=== PATIENT | male | born 2000 | race Caucasian/White ===

== ENCOUNTER 2024-10-21 14:09 | Emergency (ER) | payer SELFPAY ==
--- OUTSIDE RECORDS SUMMARY | 2024-10-21 14:17 | XMS_ITS | Clinical Summary ---
Author Organization [facility] Address [address] [place] [address] Care Team Providers Care Excel Specialist Name Role Phone Mark Ledbetter MD Primary Care Provider [phone] Allergies No known active allergies Medications No known medications Active Problems Problem Noted Date Diagnosed Date Syncope 09/08/2016 Family History Medical History Relation Name Comments Other Sister Family history of bicuspid aortic valve - (Added by TW Conv) Relation Name Status Comments Sister Social History Tobacco Use Types Packs/Day Years Used Date Smoking Tobacco: Never Smokeless Tobacco: Never Tobacco Cessation:Counseling Given: Not Answered Sex and Gender Information Value Date Recorded Sex Assigned at Not on file 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 Gender Identity Not on file Sexual Orientation Not on file Obstetrics History Last Filed Vital Signs Vital Sign Reading Time Taken Comments Blood Pressure 128/90 08/11/2022 1:29 PM CDT Pulse 95 08/11/2022 1:29 PM CDT Temperature 36.6 C (97.8 F) 08/11/2022 1:29 PM CDT Respiratory Rate 23 08/11/2022 1:29 PM CDT Oxygen Saturation 96% 08/11/2022 1:29 PM CDT Inhaled Oxygen Concentration - - Weight 120.7 kg (266 lb) 08/11/2022 1:29 PM CDT Height 175.3 cm (5' 9 ) 08/11/2022 1:29 PM CDT Body Mass Index 39.28 08/11/2022 1:29 PM CDT Plan of Treatment Health Maintenance Due Date Last Done Comments Depression Screening 2000 Hepatitis C Screening 2000 Varicella Vaccines (2 of 2 - 2-dose childhood series) 05/31/2014 03/25/2001 Regular Well Visit/Exam 18-64 02/23/2018 DTaP/Tdap/Td Vaccine (7 - Td or Tdap) 02/16/2022 02/17/2012, 06/28/2004, 07/07/2001, Additional history exists Influenza Vaccine (Season Ended) 2025 05/03/2014, 02/18/2013, 02/17/2012, Additional history exists Pneumococcal vaccine <65 Aged Out 001, 2000, 2000 No longer eligible based on patient's age to complete this topic Hepatitis B Screening Completed 2000 , 2000, 2000 HPV Vaccines Completed 05/15/2017, 01/30, 02/18/2013 Insurance [facility] Care Teams Excel Specialist Relationship Specialty Start Date End Date Mark Ledbetter MD PCP - General 08/09/16
--- OUTSIDE RECORDS SUMMARY | 2024-10-21 14:17 | XMS_ITS | Referral Summary ---
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
[2024-10-21 14:18] VITALS: BP 146/83; PULSE 81; RESP 16; TEMP 36.6; O2SAT 98
--- NOTE | 2024-10-21 14:20 | ED.URI ---
HPI - URI/Sore Throat General Chief Complaint: Upper Respiratory Infection Stated Complaint: Sore Throat,Cough ,Vomiting Time Seen by Provider: 10/21/24 14:22 History of Present Illness HPI Narrative: 24 y/o male presented for c/o cough and sore throat and nasal congestion x2.5 weeks. Reports symptoms are worse in the morning. Denies sob, wheezing, n/v/d/f/c. Not taking anything for symptoms. Kids with similar symptoms. Related Data Allergies Allergy/AdvReac Type Severity Reaction Status Date / Time No Known Allergies Allergy Verified 10/21/24 14:24 Review of Systems Review of Systems: CONSTITUTIONAL: Denies body aches, fever, chills, or sweats. EYES: Denies visual changes, redness, or discharge. ENT: reports sore throat, rhinorrhea, congestion, denies otalgia. CARDIOVASCULAR: Denies chest pain, palpitations, or edema. RESPIRATORY: Denies dyspnea. GASTROINTESTINAL: Denies abdominal pain, nausea, vomiting, or diarrhea. SKIN: Denies rash NEUROLOGIC: Denies headache Exam Narrative: GENERAL: well-appearing, no acute distress. EYES: conjunctivae clear ENT: Mucous membranes moist. right TM pearly blue with normal light reflex; Left TM erythematous, bulging and intact; canal not erythematous, no drainage no tragal tenderness. Oropharynx erythematous without lesions. Tonsils enlarged 2+ and without exudate. No drooling, no hoarseness, no trismus, uvula midline. No tripod positioning, hot potato voice, or soft palate swelling. NECK: Supple. No lymphadenopathy CHEST: Clear to auscultation, breath sounds equal. HEART: Regular rate and rhythm. No murmur heard. SKIN: Warm, dry, no rash. NEURO: Alert and oriented x3. Course Course Emergency Course: Patient is aware of diagnosis, understands and agrees to treatment plan. Anticipatory guidance given. Patient agrees to follow-up as directed and is aware of reasons to seek care at the emergency department. Portions of this record may have been created with voice recognition software Level of Care: Express Care Visit MDM - URI/Sore Throat MDM Narrative Medical decision making narrative: Discussed physical exam findings consistent with left otitis media and sinusitis. Advise supportive treatments. Patient is appropriate for outpatient treatment and follow-up. Differential Diagnosis Differential diagnosis: Likely upper respiratory infection, viral infection and pharyngitis Discharge Plan Discharge Clinical Impression: Otitis media, Sinusitis Patient Disposition: Home Condition: Stable Instructions: Antibiotic Form, Ear Infection (ED) Additional Instructions: Take antibiotic as directed Recommendations: antihistamine such as Benadryl, Zyrtec or Miroslava for sinus congestion Flonase nasal spray, 1 spray in each nostril once daily until symptoms improve Symptomatic treatment includes: rest, fluids, and increase humidity of the air at home. Please schedule a follow-up visit with your personal physician for further evaluation and treatment within 3-5days. If your symptoms persist, change or worsen significantly, go to the emergency department for further evaluation. Patient Language: Portuguese Prescriptions: New amoxicillin-pot clavulanate 875-125 mg tablet 1 tablet PO Q12H 7 Days Qty: 14 0RF Follow-up/Referrals: UNKNOWN,DOCTOR [Primary Care Provider] - Stand Alone Forms: Work/School Release IP
[2024-10-21 14:33] LABS: EDSTREPNEGPOS1 Negative (Negative)
== END 2024-10-21 14:40 | disposition home or self-care (01) ==
PROVIDERS: Emergency Provider Nurse Practitioner Family
DX: H66.92 Otitis media, unspecified, left ear (principal); J32.9 Chronic sinusitis, unspecified
CPT/HCPCS: 87081; 87880; 99203; G0463